=== PATIENT | female | born 1995 | race Caucasian/White ===

== ENCOUNTER 2018-08-23 11:42 | Emergency (ER) | payer OTHER ==
[2018-08-23 12:45] VITALS: BP 114/69
--- NOTE | 2018-08-23 13:09 | UC ---
Back Pain HPI - HPI Summary HPI Summary: Pt presents with request for a work note. Pt states that she has had low back pain "on and off" after lifting heavy objects throughout the day at work. Pt states " I am hoping to get something stronger for the pain and a work note so I can rest". Denies injury, denies numbness, tingling, loss of bowel and bladder control . - History of Current Complaint Chief Complaint: UCBackPain Stated Complaint: LOW BACK PAIN Time Seen by Provider: 08/23/18 12:48 Hx Obtained From: Patient Hx Last Menstrual Period: "two, three weeks ago" ?: No Onset/Duration: Gradual Onset, Lasting Hours Timing: Intermittent, Lasting Hours Severity Initially: Moderate Severity Currently: None Pain Intensity: 4 Back Pain: Is Discrete @ - low back Character: Dull, Aching, Spasmodic, Stiffness Aggravating Factor(s): Movement Alleviating Factor(s): Nothing Associated Signs And Symptoms: Positive: Negative - Risk Factors AAA Risk Factors: Negative TAD Risk Factors: Negative Cauda Equina Risk Factors: Negative Epidural Abscess Risk Factors: Negative - Allergies/Home Medications Allergies/Adverse Reactions: Allergies Allergy/AdvReac Type Severity Reaction Status Date / Time No Known Allergies Allergy Verified 08/23/18 12:41 Home Medications: Home Medications Acetaminophen TAB* [Tylenol TAB*] 650 - 975 mg PO Q6H PRN 08/23/18 [History Confirmed 08/23/18] Ibuprofen TAB* [Advil TAB*] 400 - 600 mg PO Q6H PRN 08/23/18 [History Confirmed 08/23/18] PMH/Surg Hx/FS Hx/Imm Hx Previously Healthy: Yes - Surgical History Surgical History: Yes Surgery Procedure, Year, and Place: [place], 2015; Tonsillectomy, ~2002 - Family History Known Family History: Positive: Cardiac Disease - Social History Occupation: Employed Full-time Lives: With Family Alcohol Use: Occasionally Substance Use Type: None Smoking Status (MU): Never Smoked Tobacco Have You Smoked in the Last Year: No - Immunization History Vaccination Up to Date: Yes Review of Systems All Other Systems Reviewed And Are Negative: Yes Constitutional: Positive: Negative Skin: Positive: Negative Eyes: Positive: Negative ENT: Positive: Negative Respiratory: Positive: Negative, Shortness Of Breath Gastrointestinal: Positive: Negative Genitourinary: Positive: Negative Motor: Positive: Negative Neurovascular: Positive: Negative Musculoskeletal: Positive: Myalgia Neurological: Positive: Negative Psychological: Positive: Negative Is Patient Immunocompromised?: No Physical Exam Triage Information Reviewed: Yes Appearance: Well-Appearing, No Pain Distress, Well-Nourished Vital Signs: Initial Vital Signs Temp 98.4 F 08/23/18 12:39 Pulse 80 08/23/18 12:39 Resp 16 08/23/18 12:39 BP 114/69 08/23/18 12:39 Pulse Ox 100 08/23/18 12:39 Vital Signs Reviewed: Yes Eye Exam: Normal ENT Exam: Normal ENT: Positive: Hearing grossly normal Dental Exam: Normal Neck exam: Normal Respiratory Exam: Normal Cardiovascular Exam: Normal Musculoskeletal Exam: Normal Musculoskeletal: Positive: Strength Intact, ROM Intact, No Edema Neurological Exam: Normal Psychological Exam: Normal Skin Exam: Normal Back Pain Course/Dx - Differential Dx/Diagnosis Differential Diagnosis/HQI/PQRI: Herniated Disc, Strain, Sprain Provider Diagnosis: Low back pain Discharge - Sign-Out/Discharge Documenting (check all that apply): Patient Departure All imaging exams completed and their final reports reviewed: No Studies - Discharge Plan Condition: Stable Disposition: HOME Prescriptions: Cyclobenzaprine TAB* [Flexeril 10 MG TAB*] 10 mg PO Q8H PRN #15 tab PRN Reason: Pain Patient Education Materials: Acute Low Back Pain (ED), Lower Back Exercises (ED ) Forms: *Work Release Referrals: [facility] [place] [facility] [Outside] - If Needed No Primary Care Phys,NOPCP [Primary Care Provider] - Additional Instructions: PLEASE ESTABLISH CARE WITH A PCP IF YOU DO NOT ALREADY HAVE ONE. PLEASE FOLLO BRISAP WITH PHYSICAL THERAPY TO HELP MANAGE YOUR COMPLAINT OF LOW BACK PAIN - Billing Disposition and Condition Condition: STABLE Disposition: Home
== END 2018-08-23 13:20 | disposition home or self-care (01) ==
LOC: UCCORT 11:42
DX: M54.5 Low back pain (principal)
CPT/HCPCS: 99202; G0463